=== PATIENT | male | born 1955 | race Caucasian/White ===

== ENCOUNTER → 2018-02-10 | Outpatient (CLI) | payer BC ==
[~2018-02-10] MED LIST: AMT10 PO; ASPCH81; CHOLTAB3 PO; MULT-506 PO; NAPR-1169 PO; SIMV20TA2 PO; TNRUNK; VTMEUNK; [UNRECOGNIZED DRUG - OTHER]
--- NOTE | 2018-02-10 10:15 | DIAGNOSTIC IMAGING REPORT ---
CHEST 2 VIEWS ROUTINE CLINICAL HISTORY: DORSALGIA COMPARISON STUDY: January 2011 FINDINGS: The heart is mildly enlarged. There is no focal pulmonary consolidation. There is no failure. There are no pleural effusions. There is mild interstitial thickening of the lung bases, a finding likely accentuated by suboptimal inspiration and the patient's large body habitus. Mild degenerative changes are present within the dorsal spine.[ IMPRESSION: No active disease in the chest. Electronically signed by: Bernard Rios M.D. 02/10/2018 10:13 AM Dictated Date/Time: 02/10/2018 10:12 AM
--- NOTE | 2018-02-10 10:28 | DIAGNOSTIC IMAGING REPORT ---
THORACIC SPINE 3 VIEWS ROUTINE CLINICAL HISTORY: DORSALGIA COMPARISON STUDY: Thoracic spine radiographs January 05, 2012. FINDINGS: No acute fracture is present. There is mild rightward curvature of the midthoracic spine which is unchanged since previous exam. There is mild disc space narrowing with moderate osteophytosis of the thoracic spine. IMPRESSION: 1. No acute thoracic spine fracture. 2. Mild multilevel disc space narrowing and moderate osteophytosis of the thoracic spine. 3. No change in mild dextroscoliosis of the midthoracic spine. Electronically signed by: Barber Hilliard M.D. 02/10/2018 10:26 AM Dictated Date/Time: 02/10/2018 10:25 AM
== END | disposition home or self-care (01) ==
LOC: C.RAD 09:47
PROVIDERS: ATTEND Family Medicine
DX: M54.9 Dorsalgia, unspecified (principal)

== ENCOUNTER 2021-06-29 12:40 | Inpatient (IN) ==
[2021-06-29] MEDS ORDERED: NITROGLYCERIN 2% OINTMENT 30GM TUBE EXT STA (13:22)
[2021-06-29] MEDS ORDERED: ASPIRIN CHEW 324 MG PO STA (13:22)
--- NOTE | 2021-06-29 13:29 | Emergency Department Note ---
Impression & Plan Right-sided chest pain, Elevated troponin, Acute electrocardiogram changes ED Provider Note NAME: KAYLA MARQUES AGE: 65 SEX: M : 1955 ARRIVES VIA: Walk-In INFORMANT: [Patient] ED PROVIDER(S): [Manuelito Fox MD] CHIEF COMPLAINT: Chest pain HISTORY OF PRESENT ILLNESS: The patient is a 65-year-old male who has had about a week of right sided chest pain that seems to wake him from sleep. The pain sometimes is severe at an 8/10. He has sweated with it. No shortness of breath. No nausea. There has been no radiation of the pain. The patient states that he has not had fever or chills. He has had no trauma to the chest wall. He has no known history of coronary disease. The patient was at the cardiology office today. His EKG has changed. He was sent for hospitalization. Of note, the patient currently has no discomfort. He states that he typically uses Aleve or something [id number] when he has the chest pain and it does seem to go away. He takes a baby aspirin every day. REVIEW OF SYSTEMS: See HPI for pertinent positives and negatives. A total of ten systems were reviewed and were otherwise negative. PMHx/PSHx: See Below SOCIAL HISTORY: See Below. PHYSICAL EXAM: GENERAL: Patient is in no acute distress. HEENT: No acute trauma, normocephalic atraumatic, mucous membranes moist, no nasal congestion, no scleral icterus. NECK: No stridor, no adenopathy, no meningismus, trachea is midline. LUNGS: Clear to auscultation bilaterally, no wheeze, no rhonchi, breath sounds equal. HEART: Without murmurs gallops or rubs, regular rate and rhythm. ABDOMEN: Soft, nontender, bowel sounds positive, no hernias, no peritonitis. EXTREMITIES: No cyanosis, mild bilateral pedal edema with some chronic skin change, full range of motion of all the joints without pain or difficulty, no signs for acute trauma. NEUROLOGIC: Oriented x 3, no acute motor or sensory deficits, no focal weakness. SKIN: No rash, no jaundice, no diaphoresis. DIFFERENTIAL DIAGNOSIS: Cardiac ischemia, aortic dissection, pulmonary embolism, pneumothorax, pneumonia, pericarditis, myocarditis, esophageal rupture, GERD, cholecystitis, pancreatitis, musculoskeletal, as well as other pathologies. EMERGENCY DEPARTMENT COURSE/PROCEDURES: ECG: Indication was chest pain. The ECG shows a sinus rhythm with a PVC. The rate is 79. There are inverted T waves laterally. The QTc is 474. Compared to an ECG from 18 May 2019, the T wave inversions are new. Continuous Cardiac Monitoring: An order was placed for continuous cardiac monitoring. The monitor shows a rate of 71 with normal sinus rhythm. Critical Care Note: I have personally spent 33 minutes of critical care time in the direct management of this patient. This includes bedside care, inte rpretation of diagnostic studies, and testing, discussion with consultants, patient, and family members, and other required patient management activities. This 33 minutes is in excess of all separately billable procedures. MEDICAL DECISION MAKING: There is no leukocytosis or concerning anemia. There is a normal platelet count. There is no coagulopathy. No significant electrolyte abnormality or kidney failure. No worrisome liver enzyme elevation. No evidence for pancreatitis. ECG showed a sinus rhythm with inverted T waves in the lateral leads. These were new T wave findings. Cardiac troponin testing returned elevated consistent with cardiac injury/strain. Covid testing returned negative. Chest x-ray did not show pneumonia or CHF. The patient presents with some right-sided chest pain over the last week. He had EKG changes as an outpatient and these changes were confirmed here in the ED. He has an elevated troponin. He likely has suffered a non-ST elevation HI. The patient is in need of a hospital stay. He is aware of his findings. I did speak with cardiology, they recommended IV heparin, this was ordered. Of note, the patient has no previous history of GI bleeding or rectal bleeding, he has not had recent surgeries. The patient was given oral aspirin, he was given nitroglycerin paste. I did speak with case management, the on-call hospitalist has been consulted. Past Med/Surg History Medical History Acquired hallux valgus of right foot Acquired hammer toe of right foot Anxiety Atrial fibrillation DX "FEW YEARS AGO" - FOLLOWS W/ DR. CHEEMA ANNUALLY Callus Dyslipidemia GERD (gastroesophageal reflux disease) Hallux valgus (acquired), left foot Hammertoe of left foot HTN (hypertension) Hyperlipidemia Osteoarthritis Sleep apnea CPAP HS Tremor HANDS-NO DX-"FAMILY THING" PER PT Venous insufficiency of both lower extremities Surgical History History of cataract surgery R/L History of colonoscopy Family History Brother Family history of diabetes mellitus Brother Family history of diabetes mellitus Brother Family history of diabetes mellitus Brother Family history of diabetes mellitus Sister Family history of diabetes mellitus Sister Family history of diabetes mellitus Sister Family history of diabetes mellitus Father Family history of diabetes mellitus Mother Family history of diabetes mellitus Grandmother (Paternal) Family history of diabetes mellitus Grandfather (Paternal) Family history of diabetes mellitus Social History Smoking Status: Former smoker Tobacco Type: Cigarettes Second Hand Exposure: No; Hx Alcohol Use: No Hx Substance Use: No Preferred Language: Uzbek Communication Ability: Effective Hearing Ability: Normal Clinical Safety Specialist Required: No Beliefs That Will Affect Care: None marital status: maried Current Living Situation: Spouse current occupational status: employed Other Information That Helps Us Care for You: No Feels Safe at Home: Yes Safety Concerns: Feels Safe At This Time Assistive Devices: CPAP and Glasses Allergies Allergies Allergy/AdvReac Type Severity Reaction Status Date / Time Penicillins Allergy Blister Verified 06/29/21 15:17 Home Meds Home Medications Medication Instructions Recorded Confirmed aspirin 81 mg tablet,delayed 81 mg PO HS 12/05/18 06/29/21 release (Adult Low Dose Aspirin) atenolol 50 mg tablet 50 mg PO QAM 12/05/18 06/29/21 naproxen 500 mg tablet (Naprosyn) 500 mg PO HS 12/05/18 06/29/21 vitamin E 200 unit capsule 200 units PO QAM 12/05/18 06/29/21 cilostazol 100 mg tablet 100 mg PO BID 03/07/19 06/29/21 ezetimibe 10 mg tablet (Zetia) 10 mg PO QAM 03/07/19 06/29/21 clonazepam 0.25 mg disintegrating 0.25 mg PO DAILY PRN 05/14/19 06/29/21 tablet amitriptyline 10 mg tablet 25 mg PO HS tab 12/28/19 06/29/21 metformin 1,000 mg tablet 2,000 mg PO DAILY 12/28/19 06/29/21 rosuvastatin 10 mg sprinkle capsule 10 mg PO DAILY 12/28/19 06/29/21 cholecalciferol (vitamin D3) 100 100 mcg PO DAILY 06/29/21 06/29/21 mcg (4,000 unit) tablet multivitamin 1 tab PO DAILY 06/29/21 06/29/21 semaglutide 7 mg tablet (Rybelsus) 7 mg PO DAILY 06/29/21 06/29/21 spironolactone 50 mg tablet 50 mg PO DAILY 06/29/21 06/29/21 Results & Data (ED) Vital Signs Vital Signs - 24 hr 06/29/21 13:00 06/29/21 13:23 06/29/21 13:35 Temperature 36.1 C L Temperature Source Skin Pulse Rate 71 72 Pulse Rate [Radial] Pulse Rate from SpO2 Sensor Pulse Rhythm Regular Pulse Strength Normal Respiratory Rate 20 13 Respiratory Effort / Characteristics Non-Labored Spontaneous Respiratory Depth Normal Respiratory Pattern Regular Blood Pressure 157/88 H 135/84 Blood Pressure [Right Arm] Blood Pressure Mean 111 101 Blood Pressure Mean [Right Arm] Pulse Oximetry 100 100 94 Oxygen Delivery Method Room Air Room Air Sepsis Recent Fever Within 48 Hours No Sepsis New/Unexplained Change in Mental Status N/A Sepsis Action Taken by Nursing No Action Required 06/29/21 15:40 06/29/21 15:41 06/29/21 16:00 Temperature Temperature Source Pulse Rate 73 78 Pulse Rate [Radial] 74 Pulse Rate from SpO2 Sensor 75 77 Pulse Rhythm Pulse Strength Respiratory Rate 19 18 19 Respiratory Effort / Characteristics Respiratory Depth Respiratory Pattern Blood Pressure 129/86 119/85 Blood Pressure [Right Arm] 129/86 Blood Pressure Mean 100 96 Blood Pressure Mean [Right Arm] 100 Pulse Oximetry 94 95 95 Oxygen Delivery Method Room Air Sepsis Recent Fever Within 48 Hours Sepsis New/Unexplained Change in Mental Status Sepsis Action Taken by Nursing 06/29/21 16:30 06/29/21 17:00 Temperature Temperature Source Pulse Rate 78 76 Pulse Rate [Radial] Pulse Rate from SpO2 Sensor 77 76 Pulse Rhythm Pulse Strength Respiratory Rate 21 14 Respiratory Effort / Characteristics Respiratory Depth Respiratory Pattern Blood Pressure 128/80 126/80 Blood Pressure [Right Arm] Blood Pressure Mean 96 95 Blood Pressure Mean [Right Arm] Pulse Oximetry 93 92 Oxygen Delivery Method Sepsis Recent Fever Within 48 Hours Sepsis New/Unexplained Change in Mental Status Sepsis Action Taken by Group Home Medications Current Medication List: was personally reviewed by me Laboratory Data Attestation: I reviewed the patient's lab results. Result diagrams: 06/29/21 14:31 06/29/21 13:46 Lab Results 06/29/21 06/29/21 06/29/21 Range/Units 13:20 13:20 13:46 WBC Cancelled RBC Cancelled Hgb Cancelled Hct Cancelled MCV Cancelled MCH Cancelled MCHC Cancelled RDW Std Deviation Cancelled RDW Coeff of Phyllis Cancelled Plt Count Cancelled MPV Cancelled Immature Gran % (Auto) Cancelled Neut % (Auto) Cancelled Lymph % (Auto) Cancelled Ashley % (Auto) Cancelled Eos % (Auto) Cancelled Baso % (Auto) Cancelled Neut # (Auto) Cancelled Lymph # (Auto) Cancelled Ashley # (Auto) Cancelled Eos # (Auto) Cancelled Baso # (Auto) Cancelled Immature Gran # (Auto) Cancelled Absolute Nucleated RBC Cancelled Nucleated RBC % (auto) Cancelled Neutrophils % (Manual) Cancelled Band Neutrophils % Cancelled Lymphocytes % (Manual) Cancelled Prolymphocyte % Cancelled Reactive Lymphs % (Man) Cancelled Monocytes % (Manual) Cancelled Eosinophils % (Manual) Cancelled Basophils % (Manual) Cancelled Metamyelocytes % (Man) Cancelled Myelocytes % (Man) Cancelled Promyelocytes % (Man) Cancelled Blast Cells % (Manual) Cancelled Plasma Cell % (Manual) Cancelled Other Cells % Cancelled Nucleated RBC % Cancelled Neutrophils # (Manual) Cancelled Band Neutrophils # Cancelled Total Absolute Neuts Cancelled Lymphocytes # (Manual) Cancelled Prolymphocyte # Cancelled Reactive Lymphs # Cancelled Total Abs Lymphocytes Cancelled Monocytes # (Manual) Cancelled Eosinophils # (Manual) Cancelled Basophils # (Manual) Cancelled Metamyelocytes # (Man) Cancelled Myelocytes # (Manual) Cancelled Promyelocytes # (Man) Cancelled Blast Cells # (Man) Cancelled Plasma Cell # (Manual) Cancelled Other Cells # Cancelled Nucleated RBCs # (Man) Cancelled Hypersegmented Neuts Cancelled Hyposegmented Neuts Cancelled Hypogranular Neuts Cancelled Large Granular Lymphs Cancelled # Lrg Granular Lymphs Cancelled Hairy Cells Cancelled Smudge Cells Cancelled Toxic Granulation Cancelled Toxic Vacuolation Cancelled Dohle Bodies Cancelled Tiana Rods Cancelled Platelet Estimate Cancelled Hypogranular Platelets Cancelled Clumped Platelets Cancelled Giant Platelets Cancelled Platelet Satelliting Cancelled RBC Morphology Cancelled Polychromasia Cancelled Hypochromasia Cancelled Poikilocytosis Cancelled Basophilic Stippling Cancelled Anisocytosis Cancelled Microcytosis Cancelled Macrocytosis Cancelled Spherocytes Cancelled Pappenheimer Bodies Cancelled Sickle Cells Cancelled Target Cells Cancelled Tear Drop Cells Cancelled Ovalocytes Cancelled Stomatocytes Cancelled [place] Bodies Cancelled Echinocytes Cancelled Acanthocytes (Spur) Cancelled Rouleaux Cancelled RBC Agglutinates Cancelled Schistocytes Cancelled RBC Morph Comment Cancelled Sezary Cell Cancelled PT INR APTT PTT Ratio Sodium (136-145) mmol/L Potassium (3.5-5.1) mmol/L Chloride (98-107) mmol/L Carbon Dioxide (21-32) mmol/L Anion Gap (3-11) BUN (7-18) mg/dl Creatinine (0.6-1.4) mg/dl Est Cr Clr Drug Dosing ml/min Est GFR ( Amer) ml/min Est GFR (Non-Af Amer) ml/min BUN/Creatinine Ratio (10-20) Glucose (70-99) mg/dl Calcium (8.5-10.1) mg/dl Magnesium (1.8-2.4) mg/dl Total Bilirubin (0.2-1) mg/dl AST (15-37) U/L ALT (12-78) U/L Alkaline Phosphatase (45-117) U/L Troponin I (0-0.045) ng/ml Total Protein (6.4-8.2) gm/dl Albumin (3.4-5.0) gm/dl Globulin (2.5-4.0) gm/dl Albumin/Globulin Ratio (0.9-2) Lipase (73-393) U/L Specimen Hemolysis COVID-19 Eval Order Covid19 at [facility] SARS-CoV-2 (PCR) NEGATIVE (Negative) 06/29/21 06/29/21 06/29/21 Range/Units 13:46 13:46 14:26 WBC RBC Hgb Hct MCV MCH MCHC RDW Std Deviation RDW Coeff of Phyllis Plt Count MPV Immature Gran % (Auto) Neut % (Auto) Lymph % (Auto) Ashley % (Auto) Eos % (Auto) Baso % (Auto) Neut # (Auto) Lymph # (Auto) Ashley # (Auto) Eos # (Auto) Baso # (Auto) Immature Gran # (Auto) Absolute Nucleated RBC Nucleated RBC % (auto) Neutrophils % (Manual) Band Neutrophils % Lymphocytes % (Manual) Prolymphocyte % Reactive Lymphs % (Man) Monocytes % (Manual) Eosinophils % (Manual) Basophils % (Manual) Metamyelocytes % (Man) Myelocytes % (Man) Promyelocytes % (Man) Blast Cells % (Manual) Plasma Cell % (Manual) Other Cells % Nucleated RBC % Neutrophils # (Manual) Band Neutrophils # Total Absolute Neuts Lymphocytes # (Manual) Prolymphocyte # Reactive Lymphs # Total Abs Lymphocytes Monocytes # (Manual) Eosinophils # (Manual) Basophils # (Manual) Metamyelocytes # (Man) Myelocytes # (Manual) Promyelocytes # (Man) Blast Cells # (Man) Plasma Cell # (Manual) Other Cells # Nucleated RBCs # (Man) Hypersegmented Neuts Hyposegmented Neuts Hypogranular Neuts Large Granular Lymphs # Lrg Granular Lymphs Hairy Cells Smudge Cells Toxic Granulation Toxic Vacuolation Dohle Bodies Tiana Rods Platelet Estimate Hypogranular Platelets Clumped Platelets Giant Platelets Platelet Satelliting RBC Morphology Polychromasia Hypochromasia Poikilocytosis Basophilic Stippling Anisocytosis Microcytosis Macrocytosis Spherocytes Pappenheimer Bodies Sickle Cells Target Cells Tear Drop Cells Ovalocytes Stomatocytes [place] Bodies Echinocytes Acanthocytes (Spur) Rouleaux RBC Agglutinates Schistocytes RBC Morph Comment Sezary Cell PT Cancelled 10.5 INR Cancelled 1.0 APTT Cancelled 25.4 PTT Ratio Cancelled 1.0 Sodium 139 (136-145) mmol/L Potassium 4.3 (3.5-5.1) mmol/L Chloride 109 H (98-107) mmol/L Carbon Dioxide 21 (21-32) mmol/L Anion Gap 9.0 (3-11) BUN 10 (7-18) mg/dl Creatinine 0.81 (0.6-1.4) mg/dl Est Cr Clr Drug Dosing 137.9 ml/min Est GFR ( Amer) 109.6 ml/min Est GFR (Non-Af Amer) 94.6 ml/min BUN/Creatinine Ratio 12.5 (10-20) Glucose 144 H (70-99) mg/dl Calcium 9.2 (8.5-10.1) mg/dl Magnesium 2.4 (1.8-2.4) mg/dl Total Bilirubin 0.7 (0.2-1) mg/dl AST 45 H (15-37) U/L ALT 55 (12-78) U/L Alkaline Phosphatase 45 (45-117) U/L Troponin I 3.140 H* (0-0.045) ng/ml Total Protein 7.0 (6.4-8.2) gm/dl Albumin 4.2 (3.4-5.0) gm/dl Globulin 2.8 (2.5-4.0) gm/dl Albumin/Globulin Ratio 1.5 (0.9-2) Lipase 240 (73-393) U/L Specimen Hemolysis COVID-19 Eval Order SARS-CoV-2 (PCR) (Negative) 06/29/21 Range/Units 14:31 WBC 8.03 RBC 6.09 Hgb 16.5 Hct 49.8 MCV 81.8 MCH 27.1 MCHC 33.1 RDW Std Deviation 43.9 RDW Coeff of Phyllis 14.7 H Plt Count 178 MPV 8.8 Immature Gran % (Auto) 0.4 Neut % (Auto) 65.7 Lymph % (Auto) 23.7 Ashley % (Auto) 8.3 Eos % (Auto) 1.7 Baso % (Auto) 0.2 Neut # (Auto) 5.27 Lymph # (Auto) 1.90 Ashley # (Auto) 0.67 H Eos # (Auto) 0.14 Baso # (Auto) 0.02 Immature Gran # (Auto) 0.03 H Absolute Nucleated RBC Nucleated RBC % (auto) Neutrophils % (Manual) Band Neutrophils % Lymphocytes % (Manual) Prolymphocyte % Reactive Lymphs % (Man) Monocytes % (Manual) Eosinophils % (Manual) Basophils % (Manual) Metamyelocytes % (Man) Myelocytes % (Man) Promyelocytes % (Man) Blast Cells % (Manual) Plasma Cell % (Manual) Other Cells % Nucleated RBC % Neutrophils # (Manual) Band Neutrophils # Total Absolute Neuts Lymphocytes # (Manual) Prolymphocyte # Reactive Lymphs # Total Abs Lymphocytes Monocytes # (Manual) Eosinophils # (Manual) Basophils # (Manual) Metamyelocytes # (Man) Myelocytes # (Manual) Promyelocytes # (Man) Blast Cells # (Man) Plasma Cell # (Manual) Other Cells # Nucleated RBCs # (Man) Hypersegmented Neuts Hyposegmented Neuts Hypogranular Neuts Large Granular Lymphs # Lrg Granular Lymphs Hairy Cells Smudge Cells Toxic Granulation Toxic Vacuolation Dohle Bodies Tiana Rods Platelet Estimate Hypogranular Platelets Clumped Platelets Giant Platelets Platelet Satelliting RBC Morphology Polychromasia Hypochromasia Poikilocytosis Basophilic Stippling Anisocytosis Microcytosis Macrocytosis Spherocytes Pappenheimer Bodies Sickle Cells Target Cells Tear Drop Cells Ovalocytes Stomatocytes [place] Bodies Echinocytes Acanthocytes (Spur) Rouleaux RBC Agglutinates Schistocytes RBC Morph Comment Sezary Cell PT INR APTT PTT Ratio Sodium (136-145) mmol/L Potassium (3.5-5.1) mmol/L Chloride (98-107) mmol/L Carbon Dioxide (21-32) mmol/L Anion Gap (3-11) BUN (7-18) mg/dl Creatinine (0.6-1.4) mg/dl Est Cr Clr Drug Dosing ml/min Est GFR ( Amer) ml/min Est GFR (Non-Af Amer) ml/min BUN/Creatinine Ratio (10-20) Glucose (70-99) mg/dl Calcium (8.5-10.1) mg/dl Magnesium (1.8-2.4) mg/dl Total Bilirubin (0.2-1) mg/dl AST (15-37) U/L ALT (12-78) U/L Alkaline Phosphatase (45-117) U/L Troponin I (0-0.045) ng/ml Total Protein (6.4-8.2) gm/dl Albumin (3.4-5.0) gm/dl Globulin (2.5-4.0) gm/dl Albumin/Globulin Ratio (0.9-2) Lipase (73-393) U/L Specimen Hemolysis COVID-19 Eval Order SARS-CoV-2 (PCR) (Negative) Administered Medications Heparin Sodium/Dextrose (Heparin Sodium/Dextrose) 25,000 units in 500 mls @ 20 mls/hr IV .Q24H GERMANIA; Protocol Stop: 07/29/21 16:29 Last Titration: 06/29/21 18:59 Dose: 1,000 units/hr, 20 mls/hr Documented by: [id number] Cosigned by: [id number] Admin: 06/29/21 16:14 Dose: 1,000 units/hr, 20 mls/hr Documented by: [id number] Cosigned by: [id number] Discontinued Medications Aspirin (Aspirin Chew 324 Mg) 324 mg PO NOW STA Stop: 06/29/21 13:23 Last Admin: 06/29/21 13:49 Dose: 324 mg Documented by: [id number] Heparin Sodium (Porcine) (Heparin Sod (Porcine) 1000 Unit/Ml) 4,000 units IV NOW ONE Stop: 06/29/21 16:26 Last Admin: 06/29/21 16:16 Dose: Not Given Documented by: [id number] Heparin Sodium/Dextrose (Heparin Iv Adult Wt-Based Low-Dose With Bolus Protocol) 1 ea IV NOW STA; Protocol Stop: 06/29/21 16:11 Last Admin: 06/29/21 16:20 Dose: Not Given Documented by: [id number] Nitroglycerin (Nitroglycerin 2% Ointment 30gm Tube) 1 inch EXT NOW STA Stop: 06/29/21 13:23 Last Admin: 06/29/21 13:50 Dose: 1 inch Documented by: [id number] Imaging Data Radiologist's Impression: Chest X-Ray 06/29/21 13:22 XR chest 1V portable HISTORY: Atypical Chest Pain COMPARISON: Chest 11/08/2010. FINDINGS: No pneumothorax or no pleural effusions. There are low lung volumes. This mild diffuse interstitial thickening. No new focal lung consolidations. The heart is mildly enlarged. No evidence for pulmonary edema. IMPRESSION: Mild diffuse interstitial thickening which may be chronic. The heart remains mildly enlarged. ACT 112: Negative or not required by law. Electronically signed by: Ismael Riggs M.D. 06/29/2021 2:39 PM Discharge Plan Visit Data Chief Complaint: Abnormal Labs/Diagnostic Testing Stated Complaint: ABNORMAL EKG, REFERRED BY PCP ED Provider: Manuelito Fox Discharge Problem: Right-sided chest pain, Elevated troponin, Acute electrocardiogram changes Patient Disposition: Admitted As Inpatient Condition: Fair Discharge Instructions Interventions: ED Discharge Assessment Last Done: 06/29/21 17:36
--- NOTE | 2021-06-29 14:40 | XRay Report ---
XR chest 1V portable HISTORY: Atypical Chest Pain COMPARISON: Chest 11/08/2010. FINDINGS: No pneumothorax or no pleural effusions. There are low lung volumes. This mild diffuse inte rstitial thickening. No new focal lung consolidations. The heart is mildly enlarged. No evidence for pulmonary edema. IMPRESSION: Mild diffuse interstitial thickening which may be chronic. The heart remains mildly enlarged. ACT 112: Negative or not required by law. Electronically signed by: Ismeal Riggs M.D. 06/29/2021 2:39 PM
[2021-06-29 14:41] LABS: Basophils # (auto) 0.02 K/uL (0-0.2); Basophils % (auto) 0.2 %; Eosinophils # (auto) 0.14 K/uL (0-0.5); Eosinophils % (auto) 1.7 %; Hematocrit (blood only) 49.8 % (42-52); Hemoglobin 16.5 g/dL (14.0-18.0); Immature Granulocytes # (auto) 0.03 K/uL (0.00-0.02); Immature Granulocytes % (auto) 0.4 %; Lymphocytes % (auto) 23.7 %; Mean Corpuscular Hemoglobin 27.1 pg (25-34); Mean Corpuscular Hgb Conc 33.1 g/dL (32-36); Mean Corpuscular Volume 81.8 fL (80-100); Mean Platelet Volume 8.8 fL (7.4-10.4); Monocytes # (auto) 0.67 K/uL (0.11-0.59); Monocytes % (auto) 8.3 %; Neutrophils # (auto) 5.27 K/uL (1.4-6.5); Neutrophils % (auto) 65.7 %; Platelet Count 178 K/uL (130-400); RDW Coefficient of Variation 14.7 % (11.5-14.5); RDW Standard Deviation 43.9 fL (36.4-46.3); Red Blood Count 6.09 M/uL (4.7-6.1); White Blood Count 8.03 K/uL (4.8-10.8)
[2021-06-29 14:54] LABS: Partial Thromboplastin Time 25.4 Seconds (21.0-31.0); Prothrombin Time 10.5 Seconds (9.0-12.0)
[2021-06-29 15:30] LABS: Albumin Globulin Ratio 1.5 (0.9-2); Albumin Level 4.2 gm/dl (3.4-5.0); BUN Creatinine Ratio 12.5 (10-20); Bilirubin,Total 0.7 mg/dl (0.2-1); Calcium 9.2 mg/dl (8.5-10.1); Creatinine Clr Calc Pharmacy 137.9 ml/min; Est GFR (African American) 109.6 ml/min; Est GFR (Non-African American) 94.6 ml/min; Globulin 2.8 gm/dl (2.5-4.0); Magnesium 2.4 mg/dl (1.8-2.4); Potassium 4.3 mmol/L (3.5-5.1); Troponin I 3.14 ng/ml (0-0.045)
[2021-06-29] MEDS ORDERED: Heparin IV Adult Wt-Based Standard WITH Bolus Protocol IV STA (15:56)
[2021-06-29] MEDS ORDERED: Heparin IV Adult Wt-Based Low-Dose *NO* Bolus Protocol IV ONE (16:06)
[2021-06-29] MEDS ORDERED: Heparin IV Adult Wt-Based Low-Dose WITH Bolus Protocol IV STA (16:10)
[2021-06-29] MEDS ORDERED: HEPARIN SOD (PORCINE) 1000 UNIT/ML IV ONE ×3 (16:11→22:43)
[2021-06-29] MEDS: HEPARIN SODIUM/DEXTROSE 25,000 UNITS/500 ML BAG IV SCH (16:14)
[2021-06-29] MEDS ORDERED: HEPARIN SODIUM/DEXTROSE 25,000 UNITS/500 ML BAG IV SCH ×2 (16:15→16:30)
--- NOTE | 2021-06-29 16:37 | Electrocardiogram Report ---
Test Reason : Blood Pressure : / mmHG Vent. Rate : 079 BPM Atrial Rate : 079 BPM P-R Int : 202 ms QRS Dur : 114 ms QT Int : 414 ms P-R-T Axes : 031 -29 -74 degrees QTc Int : 474 ms Sinus rhythm with occasional Premature ventricular complexes Prolonged QT Abnormal ECG When compared with ECG of 18-MAY-2019 18:54, Premature ventricular complexes are now Present ST now depressed in Lateral leads Nonspecific T wave abnormality, worse in Inferior leads T wave inversion now evident in Lateral leads Confirmed by Tripp Norris ([id number]) on 06/29/2021 4:36:47 PM Referred By: Bartolome Fried Confirmed By:Tripp Norris
--- NOTE | 2021-06-29 17:15 | History & Physical Report ---
Date of Service June 29, 2021 Assessment & Plan (1) Non-ST elevation (NSTEMI) myocardial infarction: Plan: - Multiple days of ongoing chest pain with EKG showing new ST depressions and in the setting of elevated troponin - No known cardiac history however multiple risk factors for CAD and reports significant FMHx of CAD requiring intervention - Currently asymptomatic - reports a couple days back his CP was worse with diaphoresis - likely troponin may be the downtrend from that event - Continue heparin gtt; ASA 81 mg daily; Nitro PRN; and Rosuvastatin 10 mg daily - will likely need high dosing and will await cardiology eval - Consult cardiology - possibility of cardiac catheterization in AM; will place NPO Present on Admission?: Yes (2) Type 2 diabetes mellitus: Plan: - Hold Metformin 2000 mg daily and Semaglutide 7 mg daily - Use insulin sliding scale and appreciate glycemic management Present on Admission?: Yes (3) Diabetic neuropathy: Plan: - Continue Amitriptyline 10 mg daily - QT prolongation on EKG; will continue to monitor with AM EKG Present on Admission?: Yes (4) Hyperlipidemia: Plan: - Continue Rosuvastin 10 mg daily - likely will need high dose statin as discussed above (5) Obstructive sleep apnea: Plan: - May utilize home CPAP machine Present on Admission?: Yes (6) Paroxysmal atrial fibrillation: Plan: - Current NSR - Continue Atenolol 50 mg daily; not on anticoagulation chronically (7) Chronic venous insufficiency: Plan: - STABLE - Continue Cilostazol 100 mg BID Present on Admission?: Yes History of Present Illness Chief Complaint: Chest Pain x 7 days Primary Care Provider: Sarah Youngblood Mr. Manzo is a 65 y/o T2DM, Diabetic Neuropathy, Paroxysmal Atrial Fibrillation, HLD, and Chronic Venous Insufficiency who presents for chest pain x 1 week. He reports R sided chest pain predominantly at night while at rest. A few nights prior he reports the most severe chest pain around an 8/10 with associated diaphoresis. Predominantly has no radiation but reports occasional radiation to R arm. Currently all symptoms are resolved. He was seen in Dr. Fried's office today which revealed EKG changes from previous EKG in 2019. Pt was referred to the ED for further evaluation. Pt remains asymptomatic with stable vital signs. Troponins elevated at 3.1. EKG with NSR with PVCs, prolonged QT, with ST depressions in lateral leads. Allergies Allergy/AdvReac Type Severity Reaction Status Date / Time Penicillins Allergy Blister Verified 06/29/21 15:17 Home Medications Medication Instructions Recorded Confirmed Type aspirin 81 mg tablet,delayed 81 mg PO HS 12/05/18 06/29/21 History release (Adult Low Dose Aspirin) atenolol 50 mg tablet 50 mg PO QAM 12/05/18 06/29/21 History naproxen 500 mg tablet (Naprosyn) 500 mg PO HS 12/05/18 06/29/21 History vitamin E 200 unit capsule 200 units PO QAM 12/05/18 06/29/21 History cilostazol 100 mg tablet 100 mg PO BID 03/07/19 06/29/21 History ezetimibe 10 mg tablet (Zetia) 10 mg PO QAM 03/07/19 06/29/21 History clonazepam 0.25 mg disintegrating 0.25 mg PO DAILY PRN 05/14/19 06/29/21 History tablet amitriptyline 10 mg tablet 25 mg PO HS tab 12/28/19 06/29/21 History metformin 1,000 mg tablet 2,000 mg PO DAILY 12/28/19 06/29/21 History rosuvastatin 10 mg sprinkle capsule 10 mg PO DAILY 12/28/19 06/29/21 History cholecalciferol (vitamin D3) 100 100 mcg PO DAILY 06/29/21 06/29/21 History mcg (4,000 unit) tablet multivitamin 1 tab PO DAILY 06/29/21 06/29/21 History semaglutide 7 mg tablet (Rybelsus) 7 mg PO DAILY 06/29/21 06/29/21 History spironolactone 50 mg tablet 50 mg PO DAILY 06/29/21 06/29/21 History Past Med/Surg History Medical History (Updated 06/29/21 @ 19:13 by Marcy Bobby PA-C) Acquired hallux valgus of right foot Acquired hammer toe of right foot Anxiety Atrial fibrillation DX "FEW YEARS AGO" - FOLLOWS W/ DR. FRIED ANNUALLY Callus Dyslipidemia GERD (gastroesophageal reflux disease) Hallux valgus (acquired), left foot Hammertoe of left foot HTN (hypertension) Hyperlipidemia Osteoarthritis Sleep apnea CPAP HS Tremor HANDS-NO DX-"FAMILY THING" PER PT Venous insufficiency of both lower extremities Surgical History History of cataract surgery R/L History of colonoscopy Family History Brother Family history of diabetes mellitus Brother Family history of diabetes mellitus Brother Family history of diabetes mellitus Brother Family history of diabetes mellitus Sister Family history of diabetes mellitus Sister Family history of diabetes mellitus Sister Family history of diabetes mellitus Father Family history of diabetes mellitus Mother Family history of diabetes mellitus Grandmother (Paternal) Family history of diabetes mellitus Grandfather (Paternal) Family history of diabetes mellitus Social History Smoking Status: Former smoker Tobacco Type: Cigarettes Second Hand Exposure: No; Hx Alcohol Use: No Hx Substance Use: No Preferred Language: Nigerien Communication Ability: Effective Hearing Ability: Normal Neck Fitter Required: No Beliefs That Will Affect Care: None marital status: maried Current Living Situation: Spouse current occupational status: employed Other Information That Helps Us Care for You: No Feels Safe at Home: Yes Safety Concerns: Feels Safe At This Time Assistive Devices: CPAP and Glasses Review of Systems Constitutional: no fever, no chills, no sweats, no fatigue and no weakness Eyes: no worsening vision Ear, Nose, Mouth, Throat: no nasal congestion and no sore throat Respiratory: no cough, no chest congestion and no wheezing Cardiovascular: no chest pain, no dyspnea, no orthopnea, no lightheadedness and no calf pain Gastrointestinal: no abdominal pain, no nausea and no vomiting Genitourinary: no dysuria Integumentary: Gregory of R lower extremity - chronic/stable Neurologic: no tingling and no numbness Physical Exam Constitutional: WD/WN, vitals as above Eyes: no conjunctival abnormality Neck: normal visual inspection and trachea midline Respiratory: normal respiratory effort, lungs clear to auscultation Cardiovascular: Rate/Rhythm: regular rate and regular rhythm Heart Sounds: normal S1 and normal S2; no murmur Vessels: no JVD Extremities: + edema (trace non-pitting edema b/l ankles) Gastrointestinal (Abdomen): normal bowel sounds, soft, nontender, no hepatosplenomegaly Skin: gregory of the L lower extremity Neurologic: moves all extremities Speech / Cognition: normal speech Psychiatric: A+Ox3, euthymic affect Results & Data Results & Data ([facility]) Vital Signs (Past 12 Hours) Vital Signs Temp Pulse Pulse Resp BP BP Pulse Ox 06/29/21 15:41 74 18 129/86 95 06/29/21 13:35 72 13 135/84 94 06/29/21 13:23 100 06/29/21 13:00 36.1 C L 71 20 157/88 H 100 Code Status & VTE Plan VTE Prophylaxis Plan VTE Prophylaxis will be ordered: Yes PG Care Time/CCT Total # of Minutes Spent Total Time Spent with Patient: Total time spent is greater than 50% in coordination of care (as documented) at patient's floor/unit and/or counseling patient: Coding Level of Care Code 21742 Initial Inpt Care Lvl 3 Diagnoses Non-ST elevation (NSTEMI) myocardial infarction I21.4 Paroxysmal atrial fibrillation I48.0 Type 2 diabetes mellitus E11.9 Diabetic neuropathy E11.40 Obstructive sleep apnea G47.33 Chronic venous insufficiency I87.2 Hyperlipidemia E78.5
[2021-06-29] MEDS ORDERED: PHARMACY GLYCEMIC MGMT CONSULT PRN (18:23)
[2021-06-29] MEDS ORDERED: ALUMINUM/MAGNESIUM SUSP 30 ML UDC PO PRN (18:23)
[2021-06-29] MEDS ORDERED: NITROGLYCERIN SL 0.4 MG/TAB TAB SL PRN (18:23)
[2021-06-29] MEDS ORDERED: POLYETHYLENE (MIRALAX) 17 GM PACK PO PRN (18:23)
[2021-06-29] MEDS ORDERED: MAGNESIUM HYDROXIDE SUSP 30 ML UDC PO PRN (18:23)
[2021-06-29] MEDS ORDERED: DEXTROSE 50% 50 ML SYRINGE IV PRN (18:23)
[2021-06-29] MEDS ORDERED: GLUCOSE 40% GEL 15 GM TUBE PO PRN (18:23)
[2021-06-29] MEDS ORDERED: GLUCAGON FOR INJ 1 MG VIAL SQ PRN (18:23)
[2021-06-29] MEDS ORDERED: ACETAMINOPHEN 325 MG TAB PO PRN (18:23)
[2021-06-29] MEDS ORDERED: CARBOHYDRATES FOR HYPOGLYCEMIA PO PRN (18:23)
[2021-06-29] MEDS ORDERED: GLUCOSE 10 TABS/TUBE PO PRN (18:23)
[2021-06-29] MEDS ORDERED: clonazePAM 0.25 MG TAB PO PRN (18:46)
[2021-06-29] MEDS: AMITRIPTYLINE HCL 25 MG TAB PO SCH (20:27)
[2021-06-29] MEDS: cilostazoL 100 MG TAB PO SCH (20:27)
[2021-06-29] MEDS: INSULIN ASPART 100 UNITS/ML 3 ML PEN SC SCH (20:28)
[2021-06-29 22:38] LABS: Partial Thromboplastin Ratio 1.1; Partial Thromboplastin Time 29.3 Seconds (21.0-31.0)
[2021-06-29] MEDS ORDERED: HEPARIN IV BOLUS 4,500 UNITS in SYRINGE 0 ML IV ONE (23:30)
[2021-06-30 06:28] LABS: Basophils # (auto) 0.02 K/uL (0-0.2); Basophils % (auto) 0.3 %; Eosinophils # (auto) 0.16 K/uL (0-0.5); Eosinophils % (auto) 2.5 %; Hematocrit (blood only) 47.2 % (42-52); Hemoglobin 15.5 g/dL (14.0-18.0); Immature Granulocytes # (auto) 0.01 K/uL (0.00-0.02); Immature Granulocytes % (auto) 0.2 %; Lymphocytes # (auto) 1.93 K/uL (1.2-3.4); Lymphocytes % (auto) 30.1 %; Mean Corpuscular Hemoglobin 26.4 pg (25-34); Mean Corpuscular Hgb Conc 32.8 g/dL (32-36); Mean Corpuscular Volume 80.3 fL (80-100); Mean Platelet Volume 8.8 fL (7.4-10.4); Monocytes # (auto) 0.71 K/uL (0.11-0.59); Monocytes % (auto) 11.1 %; Neutrophils # (auto) 3.58 K/uL (1.4-6.5); Neutrophils % (auto) 55.8 %; Platelet Count 172 K/uL (130-400); RDW Coefficient of Variation 14.7 % (11.5-14.5); RDW Standard Deviation 42.8 fL (36.4-46.3); Red Blood Count 5.88 M/uL (4.7-6.1); White Blood Count 6.41 K/uL (4.8-10.8)
[2021-06-30 06:35] LABS: Partial Thromboplastin Ratio 1.5; Partial Thromboplastin Time 40.6 Seconds (21.0-31.0)
[2021-06-30 07:01] LABS: BUN Creatinine Ratio 18.7 (10-20); Calcium 8.7 mg/dl (8.5-10.1); Creatinine Clr Calc Pharmacy 162.2 ml/min; Est GFR (African American) 117.1 ml/min; Potassium 3.7 mmol/L (3.5-5.1)
[2021-06-30 07:10] LABS: Troponin I 1.21 ng/ml (0-0.045)
[2021-06-30] MEDS: INSULIN ASPART 100 UNITS/ML 3 ML PEN SC SCH ×4 (09:00→20:17)
[2021-06-30] MEDS ORDERED: EZETIMIBE 10 MG TABLET PO SCH (09:00)
[2021-06-30] MEDS ORDERED: CHOLECALCIFEROL 1,000 UNITS 25 MCG TAB PO SCH (09:00)
[2021-06-30] MEDS ORDERED: ROSUVASTATIN CALCIUM 10 MG TAB PO SCH (09:00)
[2021-06-30] MEDS: ATENOLOL 50 MG TABLET PO SCH (09:01)
[2021-06-30] MEDS: cilostazoL 100 MG TAB PO SCH ×2 (09:01→20:30)
--- NOTE | 2021-06-30 10:01 | Pharmacy Report ---
Pharmacy Glycemic Short Note 2 - Date of Service June 30, 2021 - Glycemic Short BSG Results (Last 24 hours): 06/29/21 06/29/21 06/29/21 13:46 18:37 20:00 Glucose 144 H POC Glucose 127 H 157 H 06/30/21 06/30/21 06:05 07:12 Glucose 131 H POC Glucose 121 H OUTPATIENT ANTIDIABETIC REGIMEN: * metformin 2000 mg daily, semaglutide 7 mg daily * A1c pending ASSESSMENT: * 65 year old male admitted with NSTEMI. NPO this AM for possible cardiac catheterization. Pharmacy consulted for glycemic management. A1c ordered for tomorrow AM. Patient only on oral agents at home for diabetes * Plan to start novolog stress 2 dosing for now (based on adj bw) * Hold basal as fasting BSG 131 mg/dL this AM PLAN FOR INPATIENT GLYCEMIC CONTROL: * Hold outpatient oral diabetes medications * Basal insulin * Lantus - hold * Bolus insulin * NovoLog per scale ACHS or Q6hrs while NPO * Goal Range: Low 110 mg/dL - High 140 mg/dL * Correction Factor: 20 mg/dL/unit * Nutritional / Prandial insulin per carb ratio of 1 unit per 7 grams CHO consumed PLAN FOR DISCHARGE: * TBD - A1c pending
[2021-06-30] MEDS ORDERED: niCARdipine HCL INJ 2.5 MG/ML 10 ML AMP ONE (12:18)
[2021-06-30] MEDS ORDERED: fentaNYL citrate 100 MCG/2 ML VIAL ONE (12:19)
[2021-06-30] MEDS ORDERED: NITROGLYCERIN/D5W 100MCG/ML 20ML SYR ONE (12:19)
[2021-06-30] MEDS ORDERED: MIDAZOLAM HCL 1 MG/ML 2ML VIAL ONE (12:19)
[2021-06-30] MEDS ORDERED: BIVALIRUDIN 250 MG VIAL (CATH LAB ONLY) ONE (12:20)
--- NOTE | 2021-06-30 12:38 | Cardiology Consultation ---
Date of Consultation June 30, 2021 Assessment & Plan (1) Right-sided chest pain: -symptoms concerning for coronary ischemia. -agree with intravenous heparin. -continue aspirin and atenolol. -will proceed with cardiac catheterization today. (2) HTN (hypertension): -adequate control on current regimen. (3) Hyperlipidemia: -continue rosuvastatin and Zetia. (4) Paroxysmal atrial fibrillation: -continue atenolol. -would consider addition of long-term anticoagulant. History of Present Illness Attending Physician: French Ha DO History of Present Illness Mr. Manzo is a 65-year-old male admitted yesterday with a chest pain syndrome. This consultation was ordered to assist in his cardiac management. The patient was in his usual state of health until approximately 1 week prior to presentation. Each evening, the patient experienced a right upper chest heaviness that lasted for approximately 30 minutes. On occasion, it would awaken him from sleep. There were no other associated symptoms such as shortness of breath, nausea, vomiting, diaphoresis, or radiation of the discomfort. The patient went administer dose of Advil in felt that this may have improved his symptoms. The patient presented to Dr. Fried's office yesterday and was sent to the emergency room for further evaluation once his history was obtained. The patient has never known of a cardiac event. He has never experienced exertional angina pectoris or limiting dyspnea. He further denies syncope, presyncope, PND, orthopnea, lower extremity edema, and claudication. The patient carries a history of paroxysmal atrial fibrillation. He is tolerating rate control without difficulty. He does not appear to be on long- term anticoagulation. Currently, patient is resting comfortably in bed without complaints. Past medical and surgical history 1. Hypertension 2. Hypercholesterolemia 3. Paroxysmal atrial fibrillation 4. Diabetes mellitus 5. Diabetic peripheral neuropathy 6. Peripheral vascular disease 7. Chronic venous insufficiency 8. Obesity 9. Obstructive sleep apnea 10. DJD 11. Anxiety 12. Intra-ocular lens implants Social history and lives with his Quit tobacco use over 20 years ago No alcohol Family history Mother had 2 separate bypass surgeries performed. at 70 from an [place] Father at 62 from an [place] A brother at 55 from an [place] Review of systems A 10 review systems was undertaken and negative except for that described above. Allergies Allergy/AdvReac Type Severity Reaction Status Date / Time Penicillins Allergy Blister Verified 06/29/21 15:17 Home Medications Medication Instructions Recorded Confirmed Type aspirin 81 mg tablet,delayed 81 mg PO HS 12/05/18 06/29/21 History release (Adult Low Dose Aspirin) atenolol 50 mg tablet 50 mg PO QAM 12/05/18 06/29/21 History naproxen 500 mg tablet (Naprosyn) 500 mg PO HS 12/05/18 06/29/21 History vitamin E 200 unit capsule 200 units PO QAM 12/05/18 06/29/21 History cilostazol 100 mg tablet 100 mg PO BID 03/07/19 06/29/21 History ezetimibe 10 mg tablet (Zetia) 10 mg PO QAM 03/07/19 06/29/21 History clonazepam 0.25 mg disintegrating 0.25 mg PO DAILY PRN 05/14/19 06/29/21 History tablet amitriptyline 10 mg tablet 25 mg PO HS tab 12/28/19 06/29/21 History metformin 1,000 mg tablet 2,000 mg PO DAILY 12/28/19 06/29/21 History rosuvastatin 10 mg sprinkle capsule 10 mg PO DAILY 12/28/19 06/29/21 History cholecalciferol (vitamin D3) 100 100 mcg PO DAILY 06/29/21 06/29/21 History mcg (4,000 unit) tablet multivitamin 1 tab PO DAILY 06/29/21 06/29/21 History semaglutide 7 mg tablet (Rybelsus) 7 mg PO DAILY 06/29/21 06/29/21 History spironolactone 50 mg tablet 50 mg PO DAILY 06/29/21 06/29/21 History Patient History Medical History (Updated 06/30/21 @ 12:31 by Tripp Norris MD) Acquired hallux valgus of right foot Acquired hammer toe of right foot Anxiety Atrial fibrillation DX "FEW YEARS AGO" - FOLLOWS W/ DR. FRIED ANNUALLY Callus Dyslipidemia GERD (gastroesophageal reflux disease) Hallux valgus (acquired), left foot Hammertoe of left foot HTN (hypertension) Hyperlipidemia Osteoarthritis Sleep apnea CPAP HS Tremor HANDS-NO DX-"FAMILY THING" PER PT Venous insufficiency of both lower extremities Surgical History History of cataract surgery R/L History of colonoscopy Family History Brother Family history of diabetes mellitus Brother Family history of diabetes mellitus Brother Family history of diabetes mellitus Brother Family history of diabetes mellitus Sister Family history of diabetes mellitus Sister Family history of diabetes mellitus Sister Family history of diabetes mellitus Father Family history of diabetes mellitus Mother Family history of diabetes mellitus Grandmother (Paternal) Family history of diabetes mellitus Grandfather (Paternal) Family history of diabetes mellitus Social History Smoking Status: Former smoker Tobacco Type: Cigarettes Second Hand Exposure: No; Hx Alcohol Use: No Hx Substance Use: No Preferred Language: Ivorian Communication Ability: Effective Hearing Ability: Normal Graffiti Cleaner Required: No Beliefs That Will Affect Care: None marital status: Current Living Situation: Spouse current occupational status: employed How many Children do You have: 1 Other Information That Helps Us Care for You: No Feels Safe at Home: Yes Safety Concerns: Feels Safe At This Time Assistive Devices: CPAP and Glasses Physical Exam Physical Exam: In general this is an obese white male seated at the bedside without complaints. HEENT exam is negative. Neck is supple with full carotid upstrokes. No carotid bruits. Jugular is pressure is flat at 90. There is no thyromegaly. Cardiovascular exam reveals a regular rhythm with normal S1-S2. Heart sounds are distant. No obvious murmurs. Lungs are clear without rales, rhonchi, or wheezes. Abdomen is obese without bruits. Extremities reveal intact radial artery pulses bilaterally. There is no peripheral edema. Results & Data ([facility]) Vital Signs (Past 12 Hours) Vital Signs Temp Pulse Pulse Resp BP BP Pulse Ox 06/30/21 11:11 36.7 C 79 18 143/87 H 95 06/30/21 07:25 71 06/30/21 07:12 36.9 C 76 18 114/75 95 06/30/21 05:27 70 06/30/21 04:20 36.4 C L 71 20 117/76 95 Laboratory Results CBC notes hemoglobin of 15.5, hematocrit 47.2, white count 6.4, platelet count of [id number]. Electrolytes note a sodium 138, potassium 3.7, chloride 108, bicarb 25, BUN 13, creatinine 0.69, and glucose of 131. Initial troponin was elevated at 3.14 with follow-up values of 2.36 and 1.21. Diagnostic Findings EKG notes normal sinus rhythm with a nonspecific interventricular conduction delay and anterolateral T-wave inversions. Chest x-ray is rotated and notes cardiomegaly. PG Care Time/CCT Total # of Minutes Spent Total Time Spent with Patient: Total time spent is greater than 50% in coordination of care (as documented) at patient's floor/unit and/or counseling patient: Coding Level of Care Code 57815 Office/OBS Consult Lvl 5 Diagnoses Right-sided chest pain R07.9 HTN (hypertension) I10 Hyperlipidemia E78.5 Paroxysmal atrial fibrillation I48.0
--- NOTE | 2021-06-30 13:11 | Pre Anesthesia Assessment ---
Date of Service June 30, 2021 Pre Sedation Assessment Vital Signs Temp Pulse Pulse Resp BP BP BP 06/30/21 11:11 36.7 C 79 18 143/87 H 06/30/21 07:25 71 06/30/21 07:12 36.9 C 76 18 114/75 06/30/21 05:27 70 06/30/21 04:20 36.4 C L 71 20 117/76 06/30/21 00:03 36.5 C 70 20 113/66 06/29/21 19:37 36.7 C 77 20 110/72 06/29/21 19:17 77 06/29/21 18:05 37.0 C 76 18 121/74 06/29/21 17:30 81 15 124/80 06/29/21 17:00 76 14 126/80 06/29/21 16:30 78 21 128/80 06/29/21 16:00 78 19 119/85 06/29/21 15:41 74 18 129/86 06/29/21 15:40 73 19 129/86 06/29/21 13:35 72 13 135/84 06/29/21 13:23 Pulse Ox 06/30/21 11:11 95 06/30/21 07:25 06/30/21 07:12 95 06/30/21 05:27 06/30/21 04:20 95 06/30/21 00:03 94 06/29/21 19:37 95 06/29/21 19:17 06/29/21 18:05 93 06/29/21 17:30 92 06/29/21 17:00 92 06/29/21 16:30 93 06/29/21 16:00 95 06/29/21 15:41 95 06/29/21 15:40 94 06/29/21 13:35 94 06/29/21 13:23 100 Cardiovascular RRR, no murmur, no edema Respiratory normal respiratory effort, lungs clear to auscultation Pre-Sedation Airway Assessment Smoking Status: Former smoker Notes The planned sedation has been discussed with the patient. Informed Consent was obtained. I have identified the patient, determined the appropriateness of sedation and have assessed the patient immediately prior to the procedure. All medicine(s) and interventions are by my order.
--- NOTE | 2021-06-30 13:31 | Post Anesthesia Assessment ---
Date of Service June 30, 2021 Post Sedation Assessment Vital Signs Temp Pulse Pulse Resp BP BP BP 06/30/21 11:11 36.7 C 79 18 143/87 H 06/30/21 07:25 71 06/30/21 07:12 36.9 C 76 18 114/75 06/30/21 05:27 70 06/30/21 04:20 36.4 C L 71 20 117/76 06/30/21 00:03 36.5 C 70 20 113/66 06/29/21 19:37 36.7 C 77 20 110/72 06/29/21 19:17 77 06/29/21 18:05 37.0 C 76 18 121/74 06/29/21 17:30 81 15 124/80 06/29/21 17:00 76 14 126/80 06/29/21 16:30 78 21 128/80 06/29/21 16:00 78 19 119/85 06/29/21 15:41 74 18 129/86 06/29/21 15:40 73 19 129/86 06/29/21 13:35 72 13 135/84 Pulse Ox 06/30/21 11:11 95 06/30/21 07:25 06/30/21 07:12 95 06/30/21 05:27 06/30/21 04:20 95 06/30/21 00:03 94 06/29/21 19:37 95 06/29/21 19:17 06/29/21 18:05 93 06/29/21 17:30 92 06/29/21 17:00 92 06/29/21 16:30 93 06/29/21 16:00 95 06/29/21 15:41 95 06/29/21 15:40 94 06/29/21 13:35 94 Recovery Score Activity: Moves 4 extremities Respiration: Deep Breath/Cough Circulation: +/-20% PreAnes Value Consciousness: Fully Awake Oxygen Saturation: > 92% On Room Air Discharge Sedation Level of Care: Phase I Post Sedation Plan On clinical assessment, the patient appears to have tolerated the sedation without complications. Patient is recovering as anticipated. Patient will continue to be monitored by nursing and may be discharged when sedation discharge criteria are met per below protocol. Upon Completions of procedure up to 15 minutes continue every 5 minute vital signs and the P.A.R. score; then discharge to a Phase I or Fast Track to Phase II per the following guidelines: * Discharge Patient to appropriate Phase II area if PAR is 8 or greater or return to pre- procedure baseline. The post - procedure orders will be as directed. * If PAR score is less than 8 or not return to pre-procedure baseline then patient will follow Phase I monitoring till PAR is reached for Phase II. The Phase I may be done in procedure room or may call to secure a Phase I area. * If naloxone or flumazenil are used for reversal, hold in Phase I for continued monitoring from when last reversal dose was given for a minimum of 60 minutes or longer pending the nurse and/or physician discretion of patient condition before discharge to Phase II. Please call the Sedation Physician to re-evaluate and complete post-note for discharge to Phase II area. Do NOT discharge from procedure sedation or Phase 1 until post- sedation evaluation note is complete by procedure /sedation MD
--- NOTE | 2021-06-30 13:32 | Post Operative Brief Note ---
Cardiology Brief Post Op Date of Surgery June 30, 2021 Pre & Post Diagnosis Operation Date: 06/30/21 12:00 <No data on this case meets the specified criteria> Procedure Left heart catheterization, coronary angiography Care Partner Hermelindo Ortiz MD [employer] none Estimated Blood Loss 5 Findings Consistent with Post-Op Diagnosis Cardiac catheterization revealed occluded proximal right coronary artery with [id number] collaterals Left main artery angiographically minimal disease, proximal to mid LAD has eccentric hazy appearing lesion of 90% severity, left circumflex artery has diffuse ostial and proximal disease of up to 95% severity. Evaluation for coronary artery bypass grafting.
--- NOTE | 2021-06-30 13:35 | Cardiac Catheterization ---
ACC Data: Plug Making Operator Cardiac Status Clinical evaluation leading to the procedure CAD Presenation: Non STEMI Anginal Classification: CCS IV Diagnostic Physicians Name: Hermelindo Ortiz MD Closure Device Recommendations: Medical Therapy and/or Counseling and CABG Cardiac Cath Procedure Full Procedure Date June 30, 2021 Pre-Procedure Diagnosis Pre-Procedure Diagnosis: Non STEMI AUC Score AUC Score: 9 Post-Procedure Diagnosis Post-Procedure Diagnosis: Severe CAD Procedure(s) Performed Procedure(s) Performed: Coronary Angiography and Left Heart Cath Air Shovel Operator Hermelindo Ortiz MD Estimated Blood Loss Estimated Blood Loss: 5 ml Summary of Findings Patent left main coronary artery Severe eccentric proximal to mid left anterior sending artery lesion up to 90% severity, first diagonal artery has diffuse proximal 90% stenosis Ostial and proximal left circumflex artery has 95% diffuse disease Proximal right coronary artery with 100% stenosis with [id number] collaterals Evaluation for coronary artery bypass grafting. Hemodynamics Rest Ao:: 112/68 mmHg Final Ao: 98/62 mmHg LV: 104 over 3 mmHg, LVEDP 11 mmHg Recommendations Recommendations: Medical Therapy and/or Counseling and CABG Radiation Exposure (mGy) 633 mGy Contrast (mls) 30 cc I attest to the content of the Intraoperative Record and any orders documented therein. Any exceptions are noted below. PG Care Time/CCT Total # of Minutes Spent Total Time Spent with Patient: Total time spent is greater than 50% in coordination of care (as documented) at patient's floor/unit and/or counseling patient:
[2021-06-30 15:52] LABS: Partial Thromboplastin Time 25.8 Seconds (21.0-31.0)
--- NOTE | 2021-06-30 16:55 | Electrocardiogram Report ---
Test Reason : Blood Pressure : / mmHG Vent. Rate : 073 BPM Atrial Rate : 073 BPM P-R Int : 206 ms QRS Dur : 118 ms QT Int : 462 ms P-R-T Axes : 044 -16 -82 degrees QTc Int : 508 ms Normal sinus rhythm Non-specific intra-ventricular conduction delay Prolonged QT Abnormal ECG When compared with ECG of 29-JUN-2021 13:03, Premature ventricular complexes are no longer Present Confirmed by Tripp Norris ([id number]) on 06/30/2021 4:54:50 PM Referred By: Bartolome Fried Confirmed By:Tripp Norris
[2021-06-30] MEDS: HEPARIN SODIUM/DEXTROSE 25,000 UNITS/500 ML BAG IV SCH (17:06)
[2021-06-30] MEDS: AMITRIPTYLINE HCL 25 MG TAB PO SCH (20:29)
[2021-06-30] MEDS ORDERED: ASPIRIN 81 MG ECTAB PO SCH (21:00)
--- NOTE | 2021-06-30 21:01 | Hospitalist Progress Note ---
Date of Service June 30, 2021 Assessment & Plan (1) Non-ST elevation (NSTEMI) myocardial infarction: Plan: - Multiple days of ongoing chest pain with EKG showing new ST depressions and in the setting of elevated troponin - No known cardiac history however multiple risk factors for CAD and reports significant FMHx of CAD requiring intervention - Likely cardiac event happened a few days prior and troponins were already trending down - Cardiac catheterization revealed significant CAD needing CABG evaluation - Patient was accepted by Dr. Wooten (cardiothoracics) at [place] and awaiting transportation - Heparin gtt held until TR band removed and will restart with coag monitoring - to transfer with heparin gtt - ASA 81 mg daily; Nitro PRN; and Rosuvastatin 10 mg daily - will likely need high dosing and will await cardiology eval - Cardiology following (2) Type 2 diabetes mellitus: Plan: - Hold Metformin 2000 mg daily and Semaglutide 7 mg daily - Use insulin sliding scale and appreciate glycemic management (3) Diabetic neuropathy: Plan: - Continue Amitriptyline 10 mg daily - QT prolongation on EKG; will continue to monitor with AM EKG (4) Hyperlipidemia: Plan: - Continue Rosuvastin 10 mg daily - likely will need high dose statin as discussed above (5) Obstructive sleep apnea: Plan: - Home CPAP machine (6) Paroxysmal atrial fibrillation: Plan: - Current NSR - Continue Atenolol 50 mg daily; not on anticoagulation chronically may need considered (7) Chronic venous insufficiency: Plan: - STABLE - Continue Cilostazol 100 mg BID Admission and Anticipated Discharge Date Admission Date: June 29, 2021 Supervising Physician Co-Signing Physician Notes Attending note: patient seen and examined with Marcy Bobby PA-C. I agree with her assessment and plan. I personally reviewed the labs and imaging findings. discussed with Dr. Norris, patient with triple vessel disease, will need CABG accepted by Dr. Wooten, cardiothoracic surgeon at [place], awaiting transportation Subjective Pt reports no chest pain overnight. Remains sinus rhythm on monitor. Verbalizes no other complaints overnight/this AM. Cardiac cath revealed need for CABG evaluation. Transfer initiated with accepting provider Dr. Wooten, cardiothoracic at [place]. Awaiting transporation Review of Systems Constitutional: no fever, no chills, no sweats, no fatigue and no weakness Eyes: no worsening vision Ear, Nose, Mouth, Throat: no nasal congestion and no sore throat Respiratory: no cough, no chest congestion and no wheezing Cardiovascular: no chest pain, no dyspnea, no orthopnea, no lightheadedness and no calf pain Gastrointestinal: no abdominal pain, no nausea and no vomiting Genitourinary: no dysuria Integumentary: Benito of R lower extremity - chronic/stable Neurologic: no tingling and no numbness Physical Exam Constitutional: WD/WN, vitals as above Eyes: no conjunctival abnormality Neck: normal visual inspection and trachea midline Respiratory: normal respiratory effort, lungs clear to auscultation Cardiovascular: Rate/Rhythm: regular rate and regular rhythm Heart Sounds: normal S1 and normal S2; no murmur Vessels: no JVD Extremities: no edema Gastrointestinal (Abdomen): normal bowel sounds, soft, nontender, no hepatosplenomegaly Neurologic: moves all extremities Speech / Cognition: normal speech Psychiatric: A+Ox3, euthymic affect Results & Data Results & Data ([facility]) Vital Signs (Past 12 Hours) Vital Signs Temp Pulse Pulse Pulse Resp BP BP 06/30/21 19:41 36.5 C 69 20 152/72 H 06/30/21 18:24 37.0 C 94 H 18 147/68 H 06/30/21 17:40 77 18 121/80 06/30/21 16:20 77 20 124/79 06/30/21 16:06 74 18 130/79 06/30/21 15:50 85 18 136/87 06/30/21 15:06 79 18 122/78 06/30/21 14:50 80 18 120/76 06/30/21 14:20 79 78 16 118/71 06/30/21 14:05 37.0 C 78 18 112/71 06/30/21 14:00 76 06/30/21 13:50 74 17 110/74 06/30/21 13:35 77 17 116/76 06/30/21 11:11 36.7 C 79 18 143/87 H Pulse Ox 06/30/21 19:41 95 06/30/21 18:24 94 06/30/21 17:40 93 06/30/21 16:20 93 06/30/21 16:06 92 06/30/21 15:50 93 06/30/21 15:06 95 06/30/21 14:50 96 06/30/21 14:20 92 06/30/21 14:05 92 06/30/21 14:00 06/30/21 13:50 95 06/30/21 13:35 95 06/30/21 11:11 95 PG Care Time/CCT Total # of Minutes Spent Total Time Spent with Patient: Total time spent is greater than 50% in coordination of care (as documented) at patient's floor/unit and/or counseling patient: Coding Level of Care Code 96419 Subseq Hosp Care Lvl 3 Diagnoses Non-ST elevation (NSTEMI) myocardial infarction I21.4 Type 2 diabetes mellitus E11.9 Diabetic neuropathy E11.40 Hyperlipidemia E78.5 Obstructive sleep apnea G47.33 Paroxysmal atrial fibrillation I48.0 Chronic venous insufficiency I87.2
[2021-06-30 23:11] LABS: Partial Thromboplastin Ratio 1.3; Partial Thromboplastin Time 34.1 Seconds (21.0-31.0)
[2021-06-30] MEDS ORDERED: HEPARIN SOD (PORCINE) 1000 UNIT/ML IV ONE (23:14)
[2021-07-01] MEDS ORDERED: HEPARIN IV BOLUS 4,000 UNITS in SYRINGE 0 ML IV ONE
[2021-07-01 07:18] LABS: Partial Thromboplastin Ratio 1.8
[2021-07-01 07:19] LABS: Partial Thromboplastin Time 47.3 Seconds (21.0-31.0)
[2021-07-01 07:33] LABS: Estimated Average Glucose 194 mg/dl; Hemoglobin A1C 8.4 % (4.5-5.6)
[2021-07-01] MEDS: HEPARIN SODIUM/DEXTROSE 25,000 UNITS/500 ML BAG IV SCH (07:33)
[2021-07-01] MEDS: INSULIN ASPART 100 UNITS/ML 3 ML PEN SC SCH (07:50)
[2021-07-01] MEDS: ATENOLOL 50 MG TABLET PO SCH (07:53)
--- NOTE | 2021-07-01 14:53 | Discharge Summary ---
Date of Service July 01, 2021 Admission HPI Per Admitting Provider Mr. Manzo is a 65 y/o T2DM, Diabetic Neuropathy, Paroxysmal Atrial Fibrillation, HLD, and Chronic Venous Insufficiency who presents for chest pain x 1 week. He reports R sided chest pain predominantly at night while at rest. A few nights prior he reports the most severe chest pain around an 8/10 with associated diaphoresis. Predominantly has no radiation but reports occasional radiation to R arm. Currently all symptoms are resolved. He was seen in Dr. Fried's office today which revealed EKG changes from previous EKG in 2019. Pt was referred to the ED for further evaluation. Pt remains asymptomatic with stable vital signs. Troponins elevated at 3.1. EKG with NSR with PVCs, prolonged QT, with ST depressions in lateral leads. Principal Diagnosis NSTEMI due to CAD S/P Cardiac Catheterization requiring CABG Evaluation Discharge Exam Constitutional WD/WN, vitals as above Eyes no conjunctival abnormality Neck normal visual inspection and trachea midline Respiratory normal respiratory effort, lungs clear to auscultation Cardiovascular Rate/Rhythm: regular rate and regular rhythm Heart Sounds: normal S1 and normal S2; no murmur Vessels: no JVD Extremities: no edema Gastrointestinal (Abdomen) normal bowel sounds, soft, nontender, no hepatosplenomegaly Neurologic moves all extremities Speech / Cognition: normal speech Psychiatric A+Ox3, euthymic affect Discharge Data Allergies Allergy/AdvReac Type Severity Reaction Status Date / Time Penicillins Allergy Blister Verified 06/29/21 15:17 Consultations 06/29/21 15:55 ED Decision to Admit Stat 06/29/21 17:06 Consult Cardiology Stat 06/29/21 17:08 Consult Cardiology Routine Procedures Performed Operation Date: 06/30/21 12:00 Actual Procedures p Cath, Left with Cors and Vent - Hermelindo Ortiz MD s Cineradiography w/Routine Exam - Hermelindo Ortiz MD Ordered Studies 06/30/21 11:57 CL Cath Imgs for PACS use only Routine Hospital Course (1) Non-ST elevation (NSTEMI) myocardial infarction: - Multiple days of ongoing chest pain prior to admission with EKG showing new ST depressions and in the setting of elevated troponin - No known cardiac history however multiple risk factors for CAD and reports significant FMHx of CAD requiring intervention - Likely cardiac event happened a few days prior and troponins were already trending down - Cardiac catheterization revealed significant CAD needing CABG evaluation - Patient was accepted by Dr. Wooten (cardiothoracics) at [place] and awaiting transportation - Heparin gtt with coag monitoring - to transfer with heparin gtt - ASA 81 mg daily; Nitro PRN; and Rosuvastatin 10 mg daily - will likely need high dose therapy - Cardiology and interventionalist followed - Patient was transferred to [facility] on 01 July via [facility] (2) Type 2 diabetes mellitus: - A1c 8.4 - will need to better control glucose in setting of CAD - On Metformin 2000 mg daily and Rybelsus daily (3) Diabetic neuropathy: - Continue Amitriptyline 10 mg daily - QT prolongation on EKG (4) Hyperlipidemia: - Continue Rosuvastin 10 mg daily - likely will need high dose statin as discussed above (5) Obstructive sleep apnea: - Home CPAP machine (6) Paroxysmal atrial fibrillation: - Current NSR - Continue Atenolol 50 mg daily; not on anticoagulation chronically but may need considered - Follows with Dr. Fried's office and will defer treatment (7) Chronic venous insufficiency: - STABLE - Continue Cilostazol 100 mg BID Total Time Total Time Spent Total Time Spent (In Minutes): Greater than 30 minutes Discharge Plan Discharge Items Patient Disposition: Transfer Acute Care Hospital Reason For Visit: NSTEMI Discharge Diagnosis: NSTEMI; CAD S/P Cardiac Cath requiring CABG evaluation Condition on Discharge: Fair Activity: Resume your previous activity Non-emergency contact: Primary Care Provider and Surgeon Call non-emergency contact if: you have any medication questions and your symptoms worsen Follow-up/Referrals: Sarah Youngblood [Primary Care Provider] - Diet: Carb Consistent or DM2 and Heart Healthy Addtl Attending Provider Instructions: NSTEMI and CAD: - Presented with several days of intermittent chest pain and found to have EKG changes compared to previous EKG from 2019 - Troponin was elevated at 3 on admission and since trended down to 1 - Pt reports a few days back having a specific episode associated with diaphoresis and likely STEMI occurred at that time - Currently has TR band in place and awaiting protocol of removal to resume heparin - Pt already chronically on ASA 81 mg daily; Rosuvastatin 10 mg daily (things he may have had muscle aches with higher statin use in past) Cath Findings: - Patent left main coronary artery - Severe eccentric proximal to mid left anterior sending artery lesion up to 90% severity, first diagonal artery has diffuse proximal 90% stenosis - Ostial and proximal left circumflex artery has 95% diffuse disease - Proximal right coronary artery with 100% stenosis with [id number] collaterals T2DM with Neuropathy: - Metformin 2000 mg daily and Semaglutide 7 mg daily held and utilizing sliding scale insulin therapy - On Amitriptlyine 10 mg daily - A1c ordered but pending AYAAN: - Has CPAP machine Paroxysmal A Fib: - Has been NSR on monitor; not on long-term anticoagulation - Follows with Dr. Fried ([facility]) Pending Studies at Discharge: No Stand-Alone Forms: My [facility] Skilled Items Patient informed of condition?: Yes DNR: No Discharge Level of Care: Other Communicable Disease: No Discharge Prognosis: Stable Lines: Peripheral IV Urinary Catheter: No Medications and DC Order Prescriptions: Continued aspirin [Adult Low Dose Aspirin] 81 mg tablet,delayed release (DR/EC) 81 mg PO HS RF: 0 atenolol 50 mg tablet 50 mg PO QAM RF: 0 naproxen [Naprosyn] 500 mg tablet 500 mg PO HS RF: 0 vitamin E 200 unit capsule 200 units PO QAM RF: 0 amitriptyline 10 mg tablet 25 mg PO HS RF: 0 rosuvastatin 10 mg capsule, sprinkle 10 mg PO DAILY RF: 0 metformin 1,000 mg tablet 2,000 mg PO DAILY RF: 0 cilostazol 100 mg Tablet 100 mg PO BID RF: 0 ezetimibe [Zetia] 10 mg Tablet 10 mg PO QAM RF: 0 clonazepam 0.25 mg Tablet,Disintegrating 0.25 mg PO DAILY PRN (Reason: Anxiety) RF: 0 multivitamin Tablet 1 tab PO DAILY RF: 0 spironolactone 50 mg tablet 50 mg PO DAILY RF: 0 cholecalciferol (vitamin D3) 100 mcg (4,000 unit) Tablet 100 mcg PO DAILY RF: 0 Rybelsus 7 mg tablet 7 mg PO DAILY RF: 0 Discharge Orders: Discharge Order (Routine); Ordered 06/30/21 Ordered By: Marcy Mclain/Other Patient Handouts: A1C, Managing Type 2 Diabetes, Special Foot Care for Diabetes Admission Data Admit Date/Time: 06/29/21 17:01 Attending Provider: French Ha Admit Provider: Alexander Nuñez Primary Care Provider: Sarah Youngblood Other Providers: Tripp Norris ; Alexander Nuñez Other Interventions: Discharge Summary Assessment (RN) Last Done: 07/01/21 12:13 Supervising Physician Co-Signing Physician Notes Attending note: patient seen and examined with Marcy Bobby PA-C. I agree with her discharge summary. I personally reviewed the labs and imaging findings. discussed with Dr. Norris, patient with triple vessel disease, will need CABG accepted by Dr. Wooten, cardiothoracic surgeon at [place], awaiting transportation patient is anxious but understands the need for CABG - Severe CAD, triple vessel: transfer to [place] for CABG - NSTEMI: aspirin, heparin drip, no chest pain at this time, AL likely occurred a few days prior to admission, troponin trending down Crestor 10mg Coding Level of Care Code D/C DAY MANAGEMENT >30 MINS Diagnoses Non-ST elevation (NSTEMI) myocardial infarction I21.4 Type 2 diabetes mellitus E11.9 Diabetic neuropathy E11.40 Hyperlipidemia E78.5 Obstructive sleep apnea G47.33 Paroxysmal atrial fibrillation I48.0 Chronic venous insufficiency I87.2
--- NOTE | 2021-07-01 16:54 | Electrocardiogram Report ---
Test Reason : Blood Pressure : / mmHG Vent. Rate : 083 BPM Atrial Rate : 083 BPM P-R Int : 208 ms QRS Dur : 120 ms QT Int : 396 ms P-R-T Axes : 036 -40 -25 degrees QTc Int : 465 ms Sinus rhythm with occasional Premature ventricular complexes Left axis deviation Non-specific intra-ventricular conduction delay Nonspecific T wave abnormality Abnormal ECG When compared with ECG of 30-JUN-2021 05:11, Premature ventricular complexes are now Present T wave inversion no longer evident in Anterior leads Confirmed by Tripp Norris ([id number]) on 07/01/2021 4:54:13 PM Referred By: Bartolome Fried Confirmed By:Tripp Norris
--- NOTE | 2021-07-01 17:02 | Electrocardiogram Report ---
Test Reason : Blood Pressure : / mmHG Vent. Rate : 075 BPM Atrial Rate : 075 BPM P-R Int : 206 ms QRS Dur : 120 ms QT Int : 418 ms P-R-T Axes : 039 -42 -54 degrees QTc Int : 466 ms Normal sinus rhythm Left axis deviation Non-specific intra-ventricular conduction delay Nonspecific ST and T wave abnormality Abnormal ECG When compared with ECG of 30-JUN-2021 16:22, (unconfirmed) Premature ventricular complexes are no longer Present Confirmed by Tripp Norris ([id number]) on 07/01/2021 5:02:10 PM Referred By: Bartolome Fried Confirmed By:Tripp Norris
== END 2021-07-01 12:00 | disposition short-term general hospital (02) | DRG 282 ==
LOC: ED 12:40 → SUATTDRO 17:01 → 2S 17:01